=== PATIENT | female | born 1990 | race Caucasian/White ===

== ENCOUNTER 2018-09-01 03:52 | Inpatient (IN) ==
[2018-09-01] MEDS ORDERED: ACETAMINOPHEN 325 MG TABLET PO PRN ×2 (04:00→06:27)
[2018-09-01] MEDS ORDERED: ONDANSETRON 4 MG/2 ML VIAL IV PRN ×2 (04:00→06:27)
[2018-09-01] MEDS ORDERED: MEPERIDINE 50 MG/1 ML VIAL IV PRN (04:00)
[2018-09-01 04:28] LABS: Basophils % 0.1 % (0.0-0.8); Eosinophils # 0.1 10*3/uL (0.0-0.87); Eosinophils % 0.7 % (0.00-10.9); Hemoglobin 10.9 GM/DL (12.0-16.0); Immature Granulocytes % 0.5 %; Immature Granulocytes Absolute 0.06 #; Lymphocytes # 2.6 10*3/uL (1.4-4.0); Lymphocytes % 23.1 % (21.3-54.2); Mean Corpuscular HGB Conc 34.1 GM/DL (32-36); Mean Corpuscular Hemoglobin 30 PG (27-34); Mean Corpuscular Volume 89.1 FL (87-102); Mean Platelet Volume 12.1 FL (9.6-12.0); Monocytes # 0.7 10*3/uL (0.11-0.8); Monocytes % 6.1 % (1.7-12.7); Neutrophils # 7.8 10*3/uL (1.4-7.4); Neutrophils % 69.5 % (38.7-73.9); Platelet Count 199 T/CUMM (130-400); Red Blood Count 3.59 MC/CUMM (3.8-5.5); Red Cell Distribution Width 13.4 % (9.3-17.3); White Blood Count 11.3 T/CUMM (4-12)
[2018-09-01] MEDS ORDERED: CITRIC ACID/SODIUM CITRATE 30 ML UDCUP PO PRN (04:31)
[2018-09-01] MEDS ORDERED: FAMOTIDINE 20 MG/2 ML VIAL IV PRN (04:32)
[2018-09-01] MEDS ORDERED: OXYTOCIN/LR 20 UNIT/1,000 ML BAG IV ONE ×2 (04:34→06:27)
[2018-09-01] MEDS ORDERED: ePHEDrine 50 MG/ML AMP IV PRN (04:34)
[2018-09-01] MEDS ORDERED: fentaNYL 2 MCG/ROPIV 0.2% EPID 100 ML EPIDURAL SCH (05:00)
[2018-09-01] MEDS: LACTATED RINGERS 1,000 ML IV SCH ×2 (05:35→05:38)
[2018-09-01] MEDS ORDERED: LIDOCAINE 1% 50 ML VIAL ONE (05:55)
[2018-09-01] MEDS ORDERED: miSOPROStol 200 MCG TABLET ONE (05:55)
[2018-09-01] MEDS ORDERED: METHYLERGONOVINE 0.2 MG/1 ML AMP ONE (05:56)
[2018-09-01] MEDS ORDERED: RHO(D) IMMUNE GLOBULIN 300 MCG SYRINGE IM ONE (06:27)
[2018-09-01] MEDS ORDERED: BENZOCAINE 20%/MENTHOL 0.5% SPRAY 56 GM CAN TOP PRN (06:27)
[2018-09-01] MEDS ORDERED: LANOLIN 50% CREAM 0.3 OZ TUBE TOP PRN (06:27)
[2018-09-01] MEDS ORDERED: MEASLES/MUMPS/RUBELLA VACCINE 0.5 ML VIAL SUBCUT ONE (06:27)
[2018-09-01] MEDS ORDERED: oxyCODONE/ACETAMINOPHEN 5-325 MG TABLET PO PRN ×2 (06:27)
[2018-09-01] MEDS ORDERED: WITCH HAZEL PADS 100/JAR TOP PRN (06:27)
[2018-09-01] MEDS ORDERED: HYDROCORTISONE 2.5% RECTAL CREAM 30 GM TUBE TOP PRN (06:27)
[2018-09-01] MEDS ORDERED: BISACODYL 10 MG SUPP RECTAL PRN (06:27)
[2018-09-01] MEDS ORDERED: DIPH/TET/ACEL PERT BOOSTER VACCINE 0.5 ML VIAL IM ONE (06:27)
[2018-09-01] MEDS: BUTORPHANOL 2 MG/ML VIAL IV PRN ×2 (06:53→06:58)
[2018-09-01] MEDS ORDERED: ONDANSETRON 4 MG/2 ML VIAL IV ONE (07:24)
[2018-09-01 07:45] LABS: Apearance,Urine CLEAR (Clear); Bilirubin,Urine Negative (Negative); Blood, Urine Negative (Negative); Glucose,Urine (UA) Negative (Negative); Ketones,Urine Negative (Negative); Nitrite,Urine Negative (Negative); Protein,Urine Negative; RBC,Urine <1 /HPF (0-4); Urine Color Yellow (Yellow); Urine Urobilinogen < 2.0 EU/DL (0.2-1.0); WBC,Urine 2 /HPF (0-6)
[2018-09-01] MEDS: IBUPROFEN 800 MG TABLET PO PRN ×2 (14:21→20:03)
[2018-09-01] MEDS: DOCUSATE SODIUM 100 MG CAPSULE PO SCH (20:03)
[2018-09-02 05:58] LABS: Basophils % 0.2 % (0.0-0.8); Eosinophils # 0.1 10*3/uL (0.0-0.87); Eosinophils % 1.1 % (0.00-10.9); Hematocrit 27.9 VOL% (35.7-47.0); Hemoglobin 9.3 GM/DL (12.0-16.0); Immature Granulocytes % 0.7 %; Immature Granulocytes Absolute 0.06 #; Lymphocytes # 2.6 10*3/uL (1.4-4.0); Lymphocytes % 29.5 % (21.3-54.2); Mean Corpuscular HGB Conc 33.3 GM/DL (32-36); Mean Corpuscular Hemoglobin 31 PG (27-34); Mean Corpuscular Volume 91.8 FL (87-102); Mean Platelet Volume 12.9 FL (9.6-12.0); Monocytes # 0.7 10*3/uL (0.11-0.8); Monocytes % 7.4 % (1.7-12.7); Neutrophils # 5.5 10*3/uL (1.4-7.4); Neutrophils % 61.1 % (38.7-73.9); Platelet Count 159 T/CUMM (130-400); Red Blood Count 3.04 MC/CUMM (3.8-5.5); Red Cell Distribution Width 13.7 % (9.3-17.3); White Blood Count 8.9 T/CUMM (4-12)
[2018-09-02] MEDS: IBUPROFEN 800 MG TABLET PO PRN ×2 (07:38→17:42)
[2018-09-02] MEDS: DOCUSATE SODIUM 100 MG CAPSULE PO SCH ×3 (07:40→20:16)
[2018-09-03] MEDS: IBUPROFEN 800 MG TABLET PO PRN (00:39)
[2018-09-03 07:01] VITALS: BP 108/63
[2018-09-03] MEDS: DOCUSATE SODIUM 100 MG CAPSULE PO SCH (08:52)
[2018-09-03] MEDS ORDERED: INFLUENZA VIRUS VACCINE 0.5 ML SYRINGE IM ONE (09:00)
== END 2018-09-03 11:35 | disposition home or self-care (01) | DRG 560 ==
LOC: N.LDOUT 03:52 → N.LD 03:54 → N.OB 09:55
PROVIDERS: ADMIT Specialist; ATTEND Specialist